=== PATIENT | male | born 1990 | race Caucasian/White ===

== ENCOUNTER 2018-03-21 17:56 | Emergency (ER) | payer BC | END 2018-03-21 20:05 | disposition home or self-care (01) | LOC: FTE 17:56 | DX: S61.011A Laceration without foreign body of right thumb without damage to nail, initial encounter (principal); W26.8XXA Contact with other sharp object(s), not elsewhere classified, initial encounter; Y92.9 Unspecified place or not applicable | CPT/HCPCS: 99282 ==

== ENCOUNTER 2018-12-31 09:45 | Emergency (ER) | payer BC ==
[2018-12-31] MEDS: HYDROCODONE/APAP (10/325) TAB PO (10:10)
[2018-12-31] MEDS: KETOROLAC 30 MG INJ IM (10:11)
[2018-12-31] MEDS: ONDANSETRON (ODT) 4 MG TAB ODT (10:14)
== END 2018-12-31 11:55 | disposition home or self-care (01) ==
LOC: E/R 09:45
DX: S83.005D Unspecified dislocation of left patella, subsequent encounter (principal); S86.812D Strain of other muscle(s) and tendon(s) at lower leg level, left leg, subsequent encounter; F17.210 Nicotine dependence, cigarettes, uncomplicated; X58.XXXD Exposure to other specified factors, subsequent encounter
CPT/HCPCS: 96372; 99284-25